=== PATIENT | male | born 1950 | race Caucasian/White ===

== ENCOUNTER 2019-03-09 09:40 | Emergency (ER) | payer MEDICARE ==
[2019-03-09 10:39] VITALS: BP 141/63
--- NOTE | 2019-03-09 10:56 | UC ---
Lower Extremity/Ankle HPI - HPI Summary HPI Summary: 68-year-old male who dropped a trailer hitch on his right foot yesterday causing an abrasion as well as swelling and bruising today. He is ambulatory. He states he is up-to-date on his last tetanus immunization. - History of Current Complaint Chief Complaint: UCLowerExtremity Stated Complaint: RT FOOT INJURY Time Seen by Provider: 03/09/19 10:48 Hx Obtained From: Patient Onset/Duration: Sudden Onset Severity Initially: Mild Severity Currently: Mild Pain Intensity: 3 Aggravating Factor(s): Ambulation Alleviating Factor(s): Nothing Able to Bear Weight: Yes - Allergies/Home Medications Allergies/Adverse Reactions: Allergies Allergy/AdvReac Type Severity Reaction Status Date / Time No Known Allergies Allergy Verified 03/09/19 10:33 Home Medications: Home Medications Ibuprofen TAB* [Motrin TAB* 800 MG] 400 mg PO Q6H 03/09/19 [History Confirmed ] PMH/Surg Hx/FS Hx/Imm Hx Previously Healthy: Yes Cardiovascular History: Hypertension - Surgical History Surgical History: Yes Surgery Procedure, Year, and Place: Tendons in hands. Hernia surgery. Left 2nd toe - Family History Known Family History: Positive: Non-Contributory - Social History Lives: With Family Alcohol Use: Occasionally Substance Use Type: None Smoking Status (MU): Never Smoked Tobacco Review of Systems All Other Systems Reviewed And Are Negative: Yes Skin: Positive: Bruising, Other - Abrasion to dorsum of right foot with bruising and swelling present. Musculoskeletal: Positive: Other: - Good peripheral pulses neuro sensation capillary refill, abrasion to dorsum of right foot with bruising and swelling. Is Patient Immunocompromised?: No Physical Exam Triage Information Reviewed: Yes Appearance: Well-Appearing, No Pain Distress, Well-Nourished Vital Signs: Initial Vital Signs Temp 97.8 F 03/09/19 10:32 Pulse 56 03/09/19 10:32 Resp 16 03/09/19 10:32 BP 141/63 03/09/19 10:32 Pulse Ox 96 03/09/19 10:32 Vital Signs Reviewed: Yes Musculoskeletal: Positive: Strength Intact, ROM Intact Neurological Exam: Normal Psychological Exam: Normal Skin: Positive: Other - Superficial abrasion to dorsum right foot with swelling and bruising present. Tenderness on palpation in that area. Lower Extremity Course/Dx - Course Course Of Treatment: Right foot x-ray:FINDINGS: At the right great toe there is 30 degrees of hallux valgus angulation. Degenerative changes at this same joint include mild sclerotic change and a mild degree of subchondral lucencies. There is sclerotic change at the tibiotalar joint as well as the posterior talocalcaneal joint. The visualized bones are otherwise intact and anatomically aligned. IMPRESSION: DEGENERATIVE CHANGES DESCRIBED ABOVE INCLUDING HALLUX VALGUS DEFORMITY. If the patient's symptoms persist, follow-up imaging is recommended. An New bandage was applied as well as bacitracin dressing over the superficial abrasion. He is to watch for signs of infection which were reviewed with him. He is to follow-up with the orthopedist in 2 or 3 days if no improvement or if worsening symptoms. - Differential Dx/Diagnosis Provider Diagnosis: Contusion of foot, right, Abrasion, right foot, initial encounter Discharge ED - Sign-Out/Discharge Documenting (check all that apply): Patient Departure All imaging exams completed and their final reports reviewed: Yes - Discharge Plan Condition: Fair Disposition: HOME Patient Education Materials: Foot Contusion (ED) Referrals: Jayme Juarez MD [Primary Care Provider] - Tonya Greenberg MD [Medical Doctor] - Additional Instructions: Elevate as much as possible over the next day or 2, watch for signs of infection , apply ice intermittently throughout the day. Tylenol for pain. Follow-up with the orthopedist in 3 or 4 days if no improvement. - Billing Disposition and Condition Condition: FAIR Disposition: Home
== END 2019-03-09 12:11 | disposition home or self-care (01) ==
LOC: UCCORT 09:40
DX: S90.31XA Contusion of right foot, initial encounter (principal); S90.811A Abrasion, right foot, initial encounter; I10 Essential (primary) hypertension; W20.8XXA Other cause of strike by thrown, projected or falling object, initial encounter; Y92.9 Unspecified place or not applicable
CPT/HCPCS: 99212; G0463